=== PATIENT | female | born 1985 | race Caucasian/White ===

== ENCOUNTER 2018-11-05 11:00 | Emergency (ER) | END 2018-11-05 15:00 | disposition home or self-care (01) ==

== ENCOUNTER 2018-11-12 17:04 | Emergency (ER) | payer MEDICAID ==
[~2018-11-12] VITALS: Wt 85.2 kg
[~2018-11-12 17:04] MED LIST: ACET325T45 PO; IBUP-1542 PO; METR500T PO; NAPR-985 PO; ONDA4TAB14 PO
[2018-11-12 17:12] VITALS: BP 141/88; PULSE 80; RESP 20
[2018-11-12] MEDS ORDERED: HYDROCODONE/APAP (5/325) TAB PO ONE (18:30)
[2018-11-12] MEDS ORDERED: TAMS-14 PO (20:23)
[2018-11-12] MEDS ORDERED: IBUP-1542 PO (20:23)
[2018-11-12] MEDS ORDERED: HYDR-4011 PO (20:23)
--- NOTE | 2018-11-13 02:47 | ERD ---
ER Documentation Chief Complaint Chief Complaint c/o right sided abd pain "cramp like" pain with N/V HPI 33-year-old female presents for right-sided abdominal pain times 7 days. She states that the pain is 10 out of 10 at times. She was given some antibiotics in the ER previously stated that she took all of it however the pain continues. States that she has some vaginal bleeding however it has resolved. She admits to diarrhea. She took Motrin with some relief however the pain would return. ROS All systems reviewed and are negative except as per history of present illness. Medications Home Meds Active Scripts Hydrocodone/Acetaminophen ([place] 5-325 Tablet) 1 Each Tablet, 1 TAB PO Q6H PRN for PAIN, #10 TAB Prov:CHINTAN LOMELI 11/12/18 Tamsulosin Hcl* (Flomax*) 0.4 Mg Cap.er.24h, 0.4 MG PO DAILY for kidney stone, #30 CAP Prov:LOMELICHINTAN 11/12/18 Ibuprofen* (Ibuprofen*) 600 Mg Tablet, 600 MG PO Q6H PRN for PAIN, #30 TAB Prov:LOMELICHINTAN 11/12/18 Ondansetron (Ondansetron Odt) 4 Mg Tab.rapdis, 4 MG PO Q6H PRN for NAUSEA AND/OR VOMITING, #15 TAB Prov:LOMELICHINTAN 11/05/18 Ibuprofen* (Motrin*) 600 Mg Tab, 600 MG PO Q6H PRN for PAIN AND OR ELEVATED TEMP, #30 TAB Prov:LOMELICHINTAN 11/05/18 Metronidazole* (Flagyl*) 500 Mg Tablet, 500 MG PO BID for pelvic infection for 10 Days, #20 TAB Prov:LOMELICHINTAN DO 11/05/18 Acetaminophen* (Acetaminophen*) 325 Mg Tablet, 325 MG PO Q4H PRN for PAIN AND OR ELEVATED TEMP, #30 TAB Prov:LENIN CAI DO 04/30/16 Naproxen* (Naprosyn*) 500 Mg Tablet, 500 MG PO BID PRN for PAIN AND/OR INFLAMMATION, #14 TAB Prov:LENIN CAI DO 04/30/16 Ibuprofen* (Motrin*) 600 Mg Tab, 600 MG PO Q6H PRN for PAIN AND OR ELEVATED TEMP, #20 Prov:FLORESITA FUNK 10/10/15 Allergies Allergies: Coded Allergies: No Known Drug Allergy (Verified Allergy, Unknown, 11/05/18) PMhx/Soc Medical and Surgical Hx: pt denies Medical Hx History of Surgery: Yes () Anesthesia Reaction: No Hx Neurological Disorder: No Hx Respiratory Disorders: No Hx Cardiac Disorders: No Hx Psychiatric Problems: No Hx Miscellaneous Medical Probl: No Hx Alcohol Use: No Hx Substance Use: No Hx Tobacco Use: No Smoking Status: Never smoker Physical Exam Vitals Vital Signs Date Temp Pulse Resp B/P (MAP) Pulse Ox O2 O2 Flow FiO2 Time Delivery Rate 11/12/18 99.2 80 20 141/88 98 17:12 (105) Physical Exam Const: No acute distress Resp: Clear to auscultation bilaterally Cardio: Regular rate and rhythm, no murmurs Abd: Soft, non distended. Normal bowel sounds, right flank tenderness to palpation. No McBurney's point tenderness, no Arevalo sign, no rebound or guarding noted. Skin: No petechiae or rashes Back: No midline tenderness. There is right flank tenderness to palpation. Ext: No cyanosis, or edema Neur: Awake and alert Psych: Normal Mood and Affect Result Diagram: 11/12/18 1830 11/12/18 183 Results 24 hrs Laboratory Tests Test 11/12/18 18:30 11/12/18 18:37 White Blood Count 8.0 10^3/ul Red Blood Count 4.54 10^6/ul Hemoglobin 14.3 g/dl Hematocrit 40.4 % Mean Corpuscular Volume 89.0 fl Mean Corpuscular Hemoglobin 31.5 pg Mean Corpuscular Hemoglobin Concent 35.4 g/dl Red Cell Distribution Width 11.8 % Platelet Count 216 10^3/UL Mean Platelet Volume 11.5 fl Immature Granulocytes % 0.400 % Neutrophils % 79.8 % Lymphocytes % 10.8 % Monocytes % 7.3 % Eosinophils % 1.5 % Basophils % 0.2 % Nucleated Red Blood Cells % 0.0 /100WBC Immature Granulocytes # 0.030 10^3/ul Neutrophils # 6.4 10^3/ul Lymphocytes # 0.9 10^3/ul Monocytes # 0.6 10^3/ul Eosinophils # 0.1 10^3/ul Basophils # 0.0 10^3/ul Nucleated Red Blood Cells # 0.0 10^3/ul Urine Color YELLOW Urine Clarity SLIGHTLY CLOUDY Urine pH 5.0 Urine Specific [place] 1.017 Urine Ketones NEGATIVE mg/dL Urine Nitrite NEGATIVE mg/dL Urine Bilirubin NEGATIVE mg/dL Urine Urobilinogen NEGATIVE mg/dL Urine Leukocyte Esterase NEGATIVE Keiko/ul Urine Microscopic RBC 168 /HPF Urine Microscopic WBC 3 /HPF Urine Mucus MANY /HPF Urine Hemoglobin 3+ mg/dL Urine Glucose NEGATIVE mg/dL Urine Total Protein 1+ mg/dl Sodium Level 140 mmol/L Potassium Level 3.6 mmol/L Chloride Level 105 mmol/L Carbon Dioxide Level 25 mmol/L Anion Gap 10 Blood Urea Nitrogen 10 mg/dl Creatinine 0.61 mg/dl Est Glomerular Filtrat Rate mL/min > 60 mL/min Glucose Level 119 mg/dl Calcium Level 9.5 mg/dl Total Bilirubin 0.5 mg/dl Direct Bilirubin 0.00 mg/dl Indirect Bilirubin 0.5 mg/dl Aspartate Amino Transf (AST/SGOT) 53 IU/L Alanine Aminotransferase (ALT/SGPT) 68 IU/L Alkaline Phosphatase 161 IU/L Total Protein 8.8 g/dl Albumin 4.8 g/dl Globulin 4.00 g/dl Albumin/Globulin Ratio 1.20 Lipase 172 U/L POC Beta HCG, Qualitative NEGATIVE Current Medications Medications Dose Sig/Yimi Start Time Status Last (Trade) Ordered Route PRN Stop Time Admin Dose Reason Admin 1 tab ONCE ONCE 11/12/18 DC 11/12/18 Acetaminophen PO 18:30 11/12/18 18:31 / 18:31 Hydrocodone Bitart ([place] (5/325)) Procedures/MDM Medical Decision Making: Differential diagnosis includes but not limited to acute gastroenteritis, appendicitis, cholecystitis, pancreatitis, kidney stones. Patient appeared well on physical exam. Nontoxic appearing. Labs: CBC showed no anemia, no elevated WBC to suggest infection CMP showed no electrolyte abnormalities, there was normal kidney function, AST mildly elevated at 53, alkaline phosphatase 161 Lipase was normal Urine was negative UA was negative for infection, there is hematuria noted Imaging: CT abdomen pelvis without contrast showed a 5 mm kidney stone in the left UVJ without any left-sided hydronephrosis. This could represent a nonobstructing stone at the left UVJ or a stone that is passed through the ureter and is layering within the left side of the bladder. No evidence of bowel obstruction or inflammation. There is no appendicitis. ED course: Patient was given [place]. Symptoms improved with treatment. Prescription(s): Patient given prescription for [place] low-dose short course, Motrin, Flomax. Patient advised to follow with primary care physician for possible referral to urology if her symptoms do not improve. Patient advised to follow up with PCP in 1-2 days. Patient advised to return to ED for new or worsening symptoms. Patient stable on discharge from the ED. The patient has been prescribed [place] during this encounter. The patient has been warned about the use of narcotics. The patient should not drive or operate heavy machinery while taking this medication. The patient was also warned about the addictive properties of narcotic medications. Narcan prescription was NOT provided given the following criteria 1. No more than 5 tablets of [place] 10 mg or 10 tablets of [place] 5 mg were prescribed. 2. Concomitant opiate and benzodiazepine prescriptions were not provided. 3. There is no obvious evidence of prior history of opiate abuse or overdose. Disclaimer: Inadvertent spelling and grammatical errors are likely due to EHR/dictation software use and do not reflect on the overall quality of patient care. Also, please note that the electronic time recorded on this note does not necessarily reflect the actual time of the patient encounter. Departure Diagnosis: Primary Impression: Kidney stone on left side Condition: Fair Patient Instructions: Kidney Stone (Urine) Referrals: [facility] YOU HAVE RECEIVED A MEDICAL SCREENING EXAM AND THE RESULTS INDICATE THAT YOU DO NOT HAVE A CONDITION THAT REQUIRES URGENT TREATMENT IN THE EMERGENCY DEPARTMENT. FURTHER EVALUATION AND TREATMENT OF YOUR CONDITION CAN WAIT UNTIL YOU ARE SEEN IN YOUR DOCTORS OFFICE WITHIN THE NEXT 1-2 DAYS. IT IS YOUR RESPONSIBILITY TO MAKE AN APPOINTMENT FOR FOLOW-UP CARE. IF YOU HAVE A PRIMARY DOCTOR --you should call your primary doctor and schedule an appointment IF YOU DO NOT HAVE A PRIMARY DOCTOR YOU CAN CALL OUR PHYSICIAN REFERRAL HOTLINE AT IF YOU CAN NOT AFFORD TO SEE A PHYSICIAN YOU CAN CHOSE FROM THE FOLLOWING [facility] [address] [facility] [address] [facility] [address] [facility] [address] [facility]. [facility] [address] [facility]. [facility] [address] Additional Instructions: Call your primary care doctor TOMORROW for an appointment during the next 1-2 days.See the doctor sooner or return here if your condition worsens before your appointment time. CHINTAN LOMELI DO Nov 13, 2018 02:47
== END 2018-11-12 20:39 | disposition home or self-care (01) ==
LOC: FTE 17:04
DX: N20.0 Calculus of kidney (principal); R10.2 Pelvic and perineal pain
CPT/HCPCS: 36415; 74176; 80053; 81001; 81025; 83690; 85025; Z7502; Z7610